=== PATIENT | female | born 1960 | race Caucasian/White ===

== ENCOUNTER 2018-09-26 08:24 | Emergency (ER) | payer OTHER ==
[~2018-09-26] VITALS: Ht 172.7 cm; Wt 122.5 kg
--- OUTSIDE RECORDS SUMMARY | 2018-09-26 08:26 | XMS REPORT | Encounter Summary ---
Author Organization Unknown Address [address] [place] [address] Phone [phone] Care Team Providers Care Linting Machine Operator Name Role Phone Dr. Robert Goldman 3 [phone] Gino Resendiz MD 82 [phone] Reason for Visit Depressive disorder Instructions 1. Depressive disorder fluoxetine 20 mg capsule 2. Benign essential hypertension CMP, serum or plasma lipid panel, serum TSH, serum or plasma 3. Immunization refused 4. Screening for disorder hepatitis C virus RNA, quant, PCR, serum or plasma 5. Body mass index 40+ - severely obese body mass index: care instructions learning about healthy weight 6. Screening mammography mammogram: about this test Discussion Note: None recorded. Plan of Care Reminders Provider Appointments Return to Office on or around 03/08/2019 Robert Alejo MD Lab Hepatitis C Virus RNA, Quant, PCR, Serum or Plasma 09/06/2018 [facility] CMP, Serum or Plasma 09/06/2018 [facility] Lipid Panel, Serum 09/06/2018 [facility] TSH, Serum or Plasma 09/06/2018 [facility] Referral None recorded. Procedures None recorded. Surgeries None recorded. Imaging None recorded. Medications Name Start Date fluoxetine 20 mg capsule Take 1 capsule every day by oral route for 90 days. hydrochlorothiazide 12.5 mg tablet lisinopril 5 mg tablet Take 1 tablet every day by oral route for 30 days. metoprolol succinate ER 25 mg tablet,extended release 24 hr TAKE 1 TABLET EVERY DAY Medications Administered None recorded. Vitals Height Weight BMI Blood Pressure 5 ft 8 in 272 lbs 41.4 kg/m2 130/86 mm[Hg] Lab Results None recorded. Allergies Code Code System Name Reaction Severity Status Onset Sulfa (Sulfonamide Antibiotics) Rash Active Problems Name Status Onset Date Source Panic Attack Active 07/27/2016 Depressive Disorder Active Hypertensive Disorder Active Procedures Date Name Performed by 11/05/2016 Orthopedic Surgery Information not available 04/07/2016 Orthopedic Surgery Information not available 01/24/2014 Colonoscopy Information not available 06/16/1991 Tubal Ligation Information not available 06/16/1991 Delivery Information not available 06/07/1991 Caesarean Section Information not available 03/07/1984 Caesarean Section Information not available Vaccine List Vaccine Type zoster subunit 11/16/20170.5 mL Social History Smoking Status Former Smoker (1/2 PPD) Past Encounters 09/06/2018 Depressive Disorder; Benign Essential Hypertension; Immunization Refused; Screening for Disorder; Body Mass Index 40+ - Severely Obese; Screening Mammography Robert Alejo MD: [address] [place] [address], Ph. History of Present Illness Note:Hx of anxiety/depression coming for refill in fluoxetine. Doing well. Denies restlessness, nervousness, sadness, lack of energy, poor motivation, suicidal/homicidal thoughts. Last panic attack 1 month ago. <div>Hx of HTN. BPs at home 120s/70s. Compliant with meds, diet and exercise. No side effects with meds. No new concerns.</div> Review of Systems Comprehensive General Adult ROS Reported By: Patient Eyes: Eyes: no vision change Cardiovascular: Cardiovascular: no chest pain, no palpitations, no lightheadedness Respiratory: Respiratory: no cough, no wheezing, no shortness of breath Gastrointestinal: Gastrointestinal: no abdominal pain, no nausea, no vomiting, no constipation, no diarrhea Musculoskeletal: Musculoskeletal: no muscle aches, no swelling in the extremities Neurologic: Neurologic: no loss of consciousness, no headaches Psychiatric: Psych: no depression, no alcohol abuse, no anxiety, no suicidal thoughts Endocrine: Endocrine: no fatigue Physical Exam General Adult Exam (male) Reported By: Patient Constitutional: General Appearance: healthy-appearing, morbidly obese. Level of Distress: NAD. Ambulation: ambulating normally Psychiatric: Insight: good judgement. Mental Status: active and alert, normal mood, normal affect. Orientation: to time, to place, to person. Memory: recent memory normal, remote memory normal Eyes: Lids and Conjunctivae: non-injected, no discharge. EOM: EOMI ENMT: Ears: TMs clear. Nose: no sinus tenderness. Lips, Teeth, and Gums: no mouth or lip ulcers. Oropharynx: moist mucous membranes Neck: Neck: supple, trachea midline. Thyroid: no enlargement, non-tender Lungs: Auscultation: breath sounds normal Cardiovascular: Heart Auscultation: RRR, normal S1, normal S2, no murmurs. Neck vessels: no carotid bruits. Pulses including femoral / pedal: normal throughout Abdomen: Inspection and Palpation: soft, non-distended, no tenderness, no guarding Musculoskeletal:: Motor Strength and Tone: normal, normal tone. Joints, Bones, and Muscles: normal movement of all extremities, no contractures, no bony abnormalities, no malalignment, no tenderness. Extremities: no edema Neurologic: Gait and Station: normal gait. Cranial Nerves: grossly intact. Coordination and Cerebellum: no tremor Skin: Inspection and palpation: no rash, no lesions
--- OUTSIDE RECORDS SUMMARY | 2018-09-26 08:26 | XMS REPORT ---
Author Author [facility] Address Unknown Phone Unavailable Care Team Providers Care Retail Store Assistant Name Role Phone Amber POLO Unavailable Unavailable Problems This patient has no known problems. Allergies, Adverse Reactions, Alerts This patient has no known allergies or adverse reactions. Medications This patient has no known medications. Results Test Description Test Time Test Comments Text Results Atomic Results Result Comments CHEST SINGLE (PORTABLE) [place] [address] Patient Name: SHRUTHI NICHOLS MR #: [id number] : 1960 Age/Sex: 57/F Req #: [id number] Adm Physician: Ordered by: GAYATRI POLO MD Report #: [id number] Location: ER Room/Bed: Procedure: [id number] DX/CHEST SINGLE (PORTABLE) Exam Date: 04/03/17 Exam Time: 1922 REPORT STATUS: Signed EXAM: CHEST SINGLE (PORTABLE), AP 1 view DATE: 04/03/2017 7:07 PM Time stamp on exam: 1908 hours INDICATION: weird palpitations for one week COMPARISON: None FINDINGS: LINES/TUBES: None LUNGS: No consolidations or edema. PLEURA: No effusions or pneumothorax. HEART AND MEDIASTINUM: Normal size and contour. BONES AND SOFT TISSUES: No acute findings. IMPRESSION: No acute thoracic abnormality. Signed by: Dr. Aicha Lizama M.D. on 04/03/2017 7:29 PM Dictated By: AICHA LIZAMA MD 28 Transcribed By: EMMA on 04/03/171928 COPY TO: GAYATRI POLO MD
--- OUTSIDE RECORDS SUMMARY | 2018-09-26 08:26 | XMS REPORT | Encounter Summary ---
Author Organization Unknown Address [address] [place] [address] Phone [phone] Care Team Providers Care A And P Technician Name Role Phone [facility] 3 [phone] Reason for Visit Medical Complaint Instructions 1. Viral upper respiratory tract infection fluticasone 50 mcg/actuation nasal spray,suspension rapid flu (A+B) levocetirizine 5 mg tablet 2. Pain in throat sore throat: care instructions rapid strep group A, throat 3. Otalgia of left ear Discussion Note Pt is in NAD; Verbalizes understanding of all instructions with no questions at this time. Plan of Care Patient Instructions Take over the counter chloraseptic spray as per package insert for sore throat. Take fluticasone as needed for nasal congestion, runny nose, watery eyes and sneezing. [place] one spray in each nostril twice a day. Take a warm, steamy shower, blow your nose thereafter, and spray in each nostril. Tilt your head up for about 10 seconds and breath through your mouth. Do not sniff or snort the medication in or else the medication will go to your throat and not be absorbed appropriately. Alternate with Ibuprofen and acetaminophen every 4hrs as needed for pain/fever/headache. Proper hydration and rest. Return to work/school if free of fever for 24-hrs. Do not share any utensils/cups, no kissing, recommend hand washing after coughing/sneezing/blowing nose and cover face when you do so. Take medications as prescribed. Return to clinic or follow up with your PCP within 2-3 days if symptoms worsen as discussed. Reminders Provider Appointments None recorded. Lab Rapid Flu (A+B) 04/28/2017 [facility] Rapid Strep Group a, Throat 04/28/2017 [facility] Referral None recorded. Procedures None recorded. Surgeries None recorded. Imaging None recorded. Medications Name Start Date fluoxetine 20 mg capsule TAKE ONE CAPSULE BY MOUTH ONCE A DAY fluticasone 50 mcg/actuation nasal spray,suspension [place] 2 sprays every day by intranasal route as needed for 10 days. hydrochlorothiazide 12.5 mg capsule TAKE ONE CAPSULE BY MOUTH EVERY DAY levocetirizine 5 mg tablet Take 1 tablet every day by oral route as needed. lisinopril 20 mg tablet TAKE 1 TABLET(S) EVERY DAY BY ORAL ROUTE. metoprolol succinate ER 25 mg tablet,extended release 24 hr Medications Administered None recorded. Vitals Height Weight BMI Blood Pressure 5 ft 8 in 270 lbs 41.1 kg/m2 132/84 mm[Hg] Lab Results Date Name Specimen Result Interpretation Description Value Range Status Address Rapid Strep Group a, Throat Result negative [facility]: [address] [place] [address] Swab Location Left and Right tonsillar pillars [facility]: [address] [place] [address] Rapid Flu (A+B) Influenza a negative [facility]: [address] [place] [address] Influenza B negative [facility]: [address] [place] [address] Allergies Code Code System Name Reaction Severity Status Onset Sulfa (Sulfonamide Antibiotics) Active Problems None recorded. Procedures Date Name Performed by Information not available Information not available Tonsillectomy Information not available Vaccine List None recorded. Social History Smoking Status Never Smoker Past Encounters 04/28/2017 Viral Upper Respiratory Tract Infection; Pain in Throat; Otalgia of Left Ear Erica Kenyon, INTERNAL RECRUITER-C: [address] [place] [address], Ph. History of Present Illness [id number] Reported By: Patient HPI: Quality: symptoms worse during the day. Duration: 3 days. Context: no ill contacts, no tick/insect bites, no recent travel, no new medications. Associated Symptoms: no fever/chills, no headache, no muscle aches, no rash, no lethargy, nasal discharge; sneezing, left ear pain, sore throat and post nasal drip. Modifying Factors nothing gives relief Review of Systems:ROS as noted in the HPI Review of Systems Basic Reported By: Patient Physical Exam Adult Basic, Adult Female Complete Reported By: Patient Constitutional: General Appearance: healthy-appearing, well-nourished, well-developed. Level of Distress: NAD. Ambulation: ambulating normally Psychiatric: Mental Status: active and alert. Orientation: to time, to place, to person [id number]: Ears: no lesions on external ear, no outer ear tenderness, EACs clear, TMs clear. Hearing: no hearing loss. Nose: no lesions on external nose, nares patent, no septal deviation, nasal passages clear, no sinus tenderness, nasal discharge--rhinorrhea, post nasal drip. Lips, Teeth, and Gums: no mouth or lip ulcers, no bleeding gums, normal dentition. Oropharynx: moist mucous membranes, no erythema, no exudates, tonsils absent Neck: Lymph Nodes: no cervical LAD Lungs: Respiratory effort: no dyspnea, no tachypnea, no use of accessory muscles, no intercostal retractions. Auscultation: breath sounds normal Cardiovascular: Heart Auscultation: RRR, no murmurs Neurologic: Gait and Station: normal gait, normal station
--- OUTSIDE RECORDS SUMMARY | 2018-09-26 08:26 | XMS REPORT | Continuity of Care Document ---
Author Author [facility] Interface Address Unknown Phone Unavailable Problems Problem Status Onset Date Classification Date Reported Comments Source Viral upper respiratory tract infection 04/28/2017 Diagnosis 04/28/2017 [facility] Pain in throat 04/28/2017 Diagnosis 04/28/2017 [facility] Otalgia of left ear 04/28/2017 Diagnosis 04/28/2017 [facility] Medications Medication Details Route Status Patient Instructions Ordering Provider Order Date Source Fluoxetine 20 MG Oral Capsule fluoxetine 20 mg capsule TAKE ONE CAPSULE BY MOUTH ONCE A DAY Active [facility] Fluticasone propionate 0.05 MG/ACTUAT Metered Dose Nasal [place] fluticasone 50 mcg/actuation nasal spray,suspension [place] 2 sprays every day by intranasal route as needed for 10 days. Active [facility] Hydrochlorothiazide 12.5 MG Oral Capsule hydrochlorothiazide 12.5 mg capsule TAKE ONE CAPSULE BY MOUTH EVERY DAY Active [facility] levocetirizine dihydrochloride 5 MG Oral Tablet levocetirizine 5 mg tablet Take 1 tablet every day by oral route as needed. Active [facility] Lisinopril 20 MG Oral Tablet lisinopril 20 mg tablet TAKE 1 TABLET(S) EVERY DAY BY ORAL ROUTE. Active [facility] 24 HR metoprolol succinate 25 MG Extended Release Oral Tablet metoprolol succinate ER 25 mg tablet,extended release 24 hr Active [facility] Allergies, Adverse Reactions, Alerts Substance Category Reaction Severity Reaction type Status Date Reported Comments Source Sulfa (Sulfonamide Antibiotics) Allergy to substance 04/28/2017 [facility] Immunizations Immunization Date Given Site Status Last Updated Comments Source Results Order Name Results Value Reference Range Date Interpretation Comments Source RESULT negative 04/28/2017 [facility] SWAB LOCATION Left and Right tonsillar pillars 04/28/2017 [facility] Influenza A negative 04/28/2017 [facility] Influenza B negative 04/28/2017 [facility] Vital Signs Vital Sign Value Date Comments Source Diastolic (mm Hg) 84 04/28/2017 [facility] Height 68 04/28/2017 [facility] Systolic (mm Hg) 132 04/28/2017 [facility] Weight 270 04/28/2017 [facility] Encounters Location Location Details Encounter Type Encounter Number Reason For Visit Attending Provider ADM Date DC Date Status Source [place] - [facility] - [id number] Kenyon, TAB MACHINE OPERATOR-C: [address] [place] [address], Ph. [id number] Erica Kenyon 04/28/2017 [facility] Procedures Procedure Code Date Perfomer Comments Source [facility] Tonsillectomy [facility]
[2018-09-26] MEDS ORDERED: KETOROLAC TROMETHAMINE 60 MG/2 ML VIAL IM ONE (09:15)
[2018-09-26] MEDS ORDERED: HYDROCODONE/APAP 5MG-325MG TAB PO ONE (09:15)
[2018-09-26] MEDS ORDERED: DIAZEPAM 5 MG TAB PO ONE (09:15)
--- NOTE | 2018-09-26 09:38 | NUR ---
UPDATED PT PLAN OF CARE.
== END 2018-09-26 11:05 | disposition home or self-care (01) ==
LOC: ER 08:24
DX: M54.5 Low back pain (principal); S39.012A Strain of muscle, fascia and tendon of lower back, initial encounter; I10 Essential (primary) hypertension; F41.9 Anxiety disorder, unspecified
CPT/HCPCS: 99284; J1885